=== PATIENT | female | born 1975 | race Two or more races ===

== ENCOUNTER 2017-09-16 13:44 | Outpatient (CLI) | payer OTHER | END 2017-09-16 14:00 | disposition home or self-care (01) | LOC: LAB 13:44 | DX: N30.00 Acute cystitis without hematuria (principal) ==

== ENCOUNTER 2022-11-07 10:34 | Outpatient (CLI) | payer OTHER | END 2022-11-07 10:43 | disposition home or self-care (01) | LOC: SONOGRAMA 10:34 | PROVIDERS: ATTEND Pathology Anatomic Pathology & Clinical Pathology | DX: E04.2 Nontoxic multinodular goiter (principal) ==

== ENCOUNTER 2024-10-06 17:59 | Emergency (ER) | payer OTHER ==
[~2024-10-06] VITALS: Ht 167.6 cm; Wt 97.1 kg
[2024-10-06] MEDS ORDERED: KETOROLAC TROMETHAMINE 30 MG VIAL IM STA (18:36)
[2024-10-06] MEDS ORDERED: KETOROLAC TROMETHAMINE 30 MG VIAL ONE (18:42)
== END 2024-10-06 18:51 | disposition home or self-care (01) ==
LOC: ER 18:00
DX: R53.81 Other malaise (principal); M94.0 Chondrocostal junction syndrome [Tietze]; R51.9 Headache, unspecified